=== PATIENT | female | born 1985 | race African-American/Black ===

== ENCOUNTER 2021-07-07 08:06 | Emergency (ER) | payer OTHER ==
[~2021-07-07] VITALS: Ht 170.2 cm; Wt 95.5 kg
[2021-07-07 08:20] VITALS: BP 133/74; TEMP 99.5
[2021-07-07 09:17] VITALS: PULSE 103
== END 2021-07-07 09:18 | disposition home or self-care (01) ==
LOC: COL.ER 08:06
DX: U07.1 COVID-19 (principal); F17.210 Nicotine dependence, cigarettes, uncomplicated